=== PATIENT | male | born 1945 | race Caucasian/White ===

== ENCOUNTER 2019-01-06 22:18 | Emergency (ER) | payer OTHER ==
[2019-01-06] MEDS ORDERED: Sodium Chloride 0.9% 10 ML Syringe FLUSH PRN (23:21)
[2019-01-06] MEDS ORDERED: LORazepam 2 MG/ML SDV IVPUSH ONE (23:21)
[2019-01-07] MEDS ORDERED: HYDROmorphone 1 MG/ML Syringe IVPUSH ONE (00:08)
--- NOTE | 2019-01-07 02:44 | EDM.PDOC ---
ED HPI GENERAL MEDICAL PROBLEM - General Chief Complaint: Back Pain or Injury Stated Complaint: HURT BACK Time Seen by Provider: 01/06/19 23:17 Source of Information: Reports: Patient History Limitations: Reports: Physical Impairment (Patient appears to be in extreme pain making physical exam very difficult) - History of Present Illness INITIAL COMMENTS - FREE TEXT/NARRATIVE: This gentleman was helping move a piece of furniture when he suddenly started having severe pain in the left lower lumbar area radiating into the left leg. There was never any leg weakness no problems with bladder or bowels. 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: Acetaminophen, Aspirin left lower back Pain Score (Numeric/FACES): 10 - Related Data Allergies Allergy/AdvReac Type Severity Reaction Status Date / Time No Known Allergies Allergy Verified 01/06/19 22:52 Home Meds: Home Meds Losartan [Cozaar] 50 mg PO DAILY 01/06/19 [History] hydroCHLOROthiazide [Hydrochlorothiazide] 12.5 mg PO DAILY 01/06/19 [History] Past Medical History HEENT History: Reports: Impaired Vision Cardiovascular History: Reports: Hypertension Genitourinary History: Reports: BPH Musculoskeletal History: Reports: Back Pain, Chronic - Past Surgical History Musculoskeletal Surgical History: Reports: Other (See Below) Other Musculoskeletal Surgeries/Procedures:: right torn meniscus repair Social & Family History - Tobacco Use Smoking Status *Q: Light Tobacco Smoker Years of Tobacco use: 50 Packs/Tins Daily: 2 - Caffeine Use Caffeine Use: Reports: Coffee - Recreational Drug Use Recreational Drug Use: No ED ROS GENERAL - Review of Systems Review Of Systems: ROS reveals no pertinent complaints other than HPI. ED EXAM,LOWER BACK PAIN/INJURY - Physical Exam Exam: See Below Exam Limited By: Physical Impairment (Patient was having too much pain to allow me to examine him prior to analgesia.) General Appearance: Alert, WD/WN, Severe Distress Eye Exam: Bilateral Eye: Normal Inspection Throat/Mouth: Normal Inspection Head: Atraumatic Neck: Normal Inspection Respiratory/Chest: No Respiratory Distress GI/Abdominal: Non-Tender Back Exam: Paraspinal Tenderness (Tender in the left lumbar paraspinous muscles. ) Extremities: Normal Inspection Neurological: Alert, Normal Mood/Affect, Normal Dorsiflexion, Normal Plantar Flexion, Normal Reflexes (Patella and Achilles reflexes all discussed a scant 1 + but symmetrical), No Motor/Sensory Deficits Skin Exam: Warm, Dry Course - Vital Signs Last Recorded V/S: Last Vital Signs Temp 37.1 C 01/06/19 22:56 Pulse 72 01/06/19 22:56 Resp 16 01/06/19 22:56 BP 198/77 H 01/06/19 22:56 Pulse Ox 98 01/06/19 22:56 - Orders/Labs/Meds Orders: Active Orders 24 hr Category Date Time Status Sodium Chloride 0.9% [Saline Flush] Med 01/06/19 23:21 Active 10 ml FLUSH ASDIRECTED PRN Saline Lock Insert [OM.PC] Urgent Oth 01/06/19 23:21 Ordered Medication Orders Sodium Chloride (Saline Flush) 10 ml FLUSH ASDIRECTED PRN PRN Reason: Keep Vein Open Last Admin: 01/06/19 23:30 Dose: 10 ml Meds: Medications Generic Name Dose Route Start Last Admin Trade Name Freq PRN Reason Stop Dose Admin Sodium Chloride 10 ml 01/06/19 23:21 01/06/19 23:30 Saline Flush FLUSH 10 ml ASDIRECTED PRN Administration Keep Vein Open Discontinued Medications Generic Name Dose Route Start Last Admin Trade Name Freq PRN Reason Stop Dose Admin Hydromorphone HCl 1 mg 01/07/19 00:08 01/07/19 00:23 Dilaudid IVPUSH 01/07/19 00:09 1 mg ONETIME ONE Administration Lorazepam 2 mg 01/06/19 23:21 01/06/19 23:29 Ativan IVPUSH 01/06/19 23:22 2 mg ONETIME ONE Administration - Re-Assessments/Exams Free Text/Narrative Re-Assessment/Exam: 01/07/19 02:46 An IV was established. Initially received Ativan 2 mg IV. He was rechecked after about 30 minutes he had just a little bit of relief in the spasm but overall pain continued. He then received Dilaudid 1 mg IM which seemed to give pretty good pain relief. He has had reexamined and leg muscle strength appears to be normal. I discussed meds with his son because patient is sedated also discussed things that he needs to look out for such as leg weakness or problems with bladder or bowel Departure - Departure Time of Disposition: 02:41 Disposition: Home, Self-Care 01 Condition: Fair Clinical Impression: Low back pain - Discharge Information Referrals: PCP,None [Primary Care Provider] - Forms: ED Department Discharge Additional Instructions: For pain take Percocet 5/325 (#20 tablets) one or 2 tabs every 4-6 hours when necessary. For muscle spasms use Flexeril 10 mg 3 times a day. Both of these medications cause sedation and impaired driving or operating machinery. Percocet can be dictated. If you suddenly developed weakness in your legs or incontinence of stool or the inability to urinate this would constitute an emergency need to be seen in the ER immediately. Otherwise follow-up with your early next week. If symptoms persist he'll possibly need an MRI of your lumbar spine. - My Orders Last 24 Hours: My Active Orders 01/06/19 23:21 Sodium Chloride 0.9% [Saline Flush] 10 ml FLUSH ASDIRECTED PRN Saline Lock Insert [OM.PC] Urgent - Assessment/Plan Last 24 Hours: My Active Orders 01/06/19 23:21 Sodium Chloride 0.9% [Saline Flush] 10 ml FLUSH ASDIRECTED PRN Saline Lock Insert [OM.PC] Urgent
== END 2019-01-07 03:38 | disposition home or self-care (01) ==
LOC: JP.ED 22:18
DX: M54.5 Low back pain (principal); I10 Essential (primary) hypertension; F17.210 Nicotine dependence, cigarettes, uncomplicated
CPT/HCPCS: 96374; 96375; 99283; J1170; J2060

== ENCOUNTER 2019-01-10 10:22 | Emergency (ER) | payer OTHER ==
[2019-01-10] MEDS ORDERED: Ketorolac 60 MG/2 ML SDV IM ONE (10:53)
--- NOTE | 2019-01-10 10:57 | EDM.PDOC ---
ED HPI GENERAL MEDICAL PROBLEM - General Chief Complaint: Back Pain or Injury Stated Complaint: BACK PAIN Time Seen by Provider: 01/10/19 10:30 Source of Information: Reports: Patient, Family History Limitations: Reports: No Limitations - History of Present Illness INITIAL COMMENTS - FREE TEXT/NARRATIVE: 73-year-old with intense left buttock pain for the past week. Onset: Sudden Duration: Day(s): (6 days ago this patient was helping move some furniture when it slipped and he will lean forward to catch a heavy chair or couch and felt a pull in his left buttock and lower back. Since that time he sits persistent pain and burning. It's better when he lies still. It's much worse when he standing and moving and attempting to walk. He was seen on Wednesday in the emergency room and given oxycodone and Flexeril, the oxycodone helps him sleep but it's not improving. He has no rash or bruising or swelling, no radiation of pain down the leg past the mid thigh. No groin discomfort.) Associated Symptoms: Reports: No Other Symptoms Left Buttock Pain Score (Numeric/FACES): 10 - Related Data Allergies Allergy/AdvReac Type Severity Reaction Status Date / Time No Known Allergies Allergy Verified 01/10/19 10:35 Home Meds: Home Meds Losartan [Cozaar] 50 mg PO DAILY 01/06/19 [History] hydroCHLOROthiazide [Hydrochlorothiazide] 12.5 mg PO DAILY 01/06/19 [History] Cyclobenzaprine [Flexeril] 10 mg PO TID 01/10/19 [History] oxyCODONE HCl/Acetaminophen [Percocet 5-325 mg Tablet] 1 each PO Q4HR 01/10/19 [ History] Past Medical History HEENT History: Reports: Impaired Vision Cardiovascular History: Reports: Hypertension Genitourinary History: Reports: BPH Musculoskeletal History: Reports: Back Pain, Chronic - Past Surgical History Musculoskeletal Surgical History: Reports: Other (See Below) Other Musculoskeletal Surgeries/Procedures:: right torn meniscus repair Social & Family History - Tobacco Use Years of Tobacco use: 50 - Caffeine Use Caffeine Use: Reports: Coffee - Recreational Drug Use Recreational Drug Use: No ED ROS GENERAL - Review of Systems Review Of Systems: See Below Constitutional: Denies: Fever, Chills Respiratory: Denies: Shortness of Breath Cardiovascular: Denies: Chest Pain GI/Abdominal: Denies: Abdominal Pain Musculoskeletal: Reports: Other (Left posterior buttock and hip discomfort) Skin: Reports: No Symptoms Neurological: Denies: Paresthesia Psychiatric: Reports: No Symptoms ED EXAM,LOWER BACK PAIN/INJURY - Physical Exam Exam: See Below Exam Limited By: No Limitations General Appearance: Alert, No Apparent Distress Head: Atraumatic Respiratory/Chest: No Respiratory Distress Extremities: Other (Patient has intense palpation pain to the posterior lateral left buttock, there is no tenderness over the greater trochanteric area and no pain with passive internal and external rotation of the hip, minimal discomfort with flexion and extension.) Course - Vital Signs Last Recorded V/S: Last Vital Signs Temp 98.3 F 01/10/19 10:29 Pulse 72 01/10/19 11:29 Resp 18 01/10/19 11:29 BP 151/77 H 01/10/19 11:29 Pulse Ox 94 L 01/10/19 11:29 - Orders/Labs/Meds Meds: Medications Discontinued Medications Generic Name Dose Route Start Last Admin Trade Name Kaci PRN Reason Stop Dose Admin Ketorolac Tromethamine 60 mg 01/10/19 10:53 01/10/19 10:59 Toradol IM 01/10/19 10:54 60 mg ONETIME ONE Administration - Re-Assessments/Exams Free Text/Narrative Re-Assessment/Exam: 01/10/19 10:56 Patient was given 60 mg of IM Toradol and sent back for a pelvis and 1 view left hip x-ray. 01/10/19 12:42 Hip x-ray showed chronic-appearing sclerotic lesions. Patient will be treated with a Medrol Dosepak, given an additional 20 Percocet and 15 Flexeril and will consider physical therapy if not improving in the next several days. Departure - Departure Time of Disposition: 13:10 Disposition: Home, Self-Care 01 Clinical Impression: Sciatica of left side Strain of left buttock Qualifiers: Encounter type: initial encounter Qualified Code(s): S76.012A - Strain of muscle, fascia and tendon of left hip, initial encounter - Discharge Information Instructions: Sciatica, [id number] Referrals: PCP,None [Primary Care Provider] - Forms: ED Department Discharge Care Plan Goals: Continue current medications, take steroids as recommended and increase activity as tolerated. Call if not improving satisfactorily or you decide you want to try physical therapy consultation.
--- NOTE | 2019-01-10 12:25 | CRLCR ---
INDICATION: Left hip and buttock pain. FINDINGS: A single frontal view of the pelvis along with a single view of the left hip show a 8.5 x 3.6 cm lytic and sclerotic lesion in the intertrochanteric portion of the left femur. Small spur/osteophyte extending off the lower portion of the left acetabulum. No evidence of acute fracture or dislocation. Degenerative changes of the lower lumbar spine. Atherosclerotic vascular calcifications. Impression : 1. 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 Recommend follow-up plain film x-rays of the left hip in 1 year to begin documentation of stability. Dictated by Jaylan Mosley MD @ 01/10/2019 12:24:16 PM Dictated by: Jaylan Mosley MD @ 01/10/2019 12:24:24 (Electronically Signed)
== END 2019-01-10 13:10 | disposition home or self-care (01) ==
LOC: JP.ED 10:22
DX: S76.012A Strain of muscle, fascia and tendon of left hip, initial encounter (principal); I10 Essential (primary) hypertension; X50.0XXA Overexertion from strenuous movement or load, initial encounter; M54.32 Sciatica, left side; Z79.899 Other long term (current) drug therapy
CPT/HCPCS: 73501; 96372; 99283; J1885